=== PATIENT | male | born 1985 | race African-American/Black ===

== ENCOUNTER 2025-02-05 09:29 | Emergency (ER) | payer MEDICAID ==
[~2025-02-05] VITALS: Ht 195.6 cm; Wt 91.0 kg
[2025-02-05 09:41] VITALS: BP 164/109; PULSE 77; RESP 16; TEMP 36.9; O2SAT 98; O2SAT 99
[2025-02-05] MEDS: LIDOCAINE HCL 1% 20ML VIAL INFIL NR (10:48)
== END 2025-02-05 13:01 | disposition home or self-care (01) ==
LOC: ER 09:29
DX: S63.282A Dislocation of proximal interphalangeal joint of right middle finger, initial encounter (principal); I10 Essential (primary) hypertension; X58.XXXA Exposure to other specified factors, initial encounter; Y93.9 Activity, unspecified; Y92.89 Other specified places as the place of occurrence of the external cause; Y99.8 Other external cause status
CPT/HCPCS: 73120; 73130; 26770; 99284; J3490; Z7610